=== PATIENT | male | born 2000 | race Caucasian/White ===

== ENCOUNTER 2023-04-22 14:47 | Emergency (ER) | payer MEDICAID ==
[~2023-04-22] VITALS: Ht 170.2 cm; Wt 56.7 kg
[2023-04-22 14:58] VITALS: BP 100/75; TEMP 98.1
[2023-04-22] MEDS ORDERED: AMOXICILLIN TRIHYDRATE 500 MG CAPSULE PO ONE (15:00)
[2023-04-22] MEDS ORDERED: IBUPROFEN 600 MG TABLET PO ONE (15:00)
[2023-04-22] MEDS ORDERED: IBUPROFEN 600 MG TABLET ONE (15:04)
[2023-04-22] MEDS ORDERED: AMOXICILLIN TRIHYDRATE 250 MG CAPSULE ONE (15:04)
[2023-04-22] MEDS ORDERED: AMOX500C2 PO (15:10)
[2023-04-22 15:16] VITALS: O2SAT 98
== END 2023-04-22 15:16 | disposition home or self-care (01) ==
LOC: ER 14:56
DX: J02.9 Acute pharyngitis, unspecified (principal)